=== PATIENT | female | born 1985 | race Hispanic/Latino ===

== ENCOUNTER 2016-08-18 15:15 | Emergency (ER) | payer SELFPAY ==
[~2016-08-18 15:15] MED LIST: AMOXICILLIN500 MG OR; CIPROFLOXACN500 MG PO; MACRODANTIN100 MG OR; PRENATA4 OR; PYRIDIUM200 MG PO
== END 2016-08-18 15:23 | disposition left against medical advice (07) | DRG 951 ==
LOC: ED 15:15 → LWOBS 15:23
DX: Z91.19 Patient's noncompliance with other medical treatment and regimen (principal)

== ENCOUNTER 2017-05-17 16:03 | Emergency (ER) | payer SELFPAY ==
[~2017-05-17] VITALS: Ht 162.6 cm; Wt 72.0 kg
[2017-05-17 16:28] LABS: URINE BILIRUBIN - DIPSTICK NEGATIVE (NEGATIVE); URINE BLOOD DIPSTICK LARGE (NEGATIVE); URINE COLOR YELLOW; URINE GLUCOSE - DIPSTICK >=1000 mg/dL (NEGATIVE); URINE KETONE NEGATIVE (NEGATIVE); URINE LEUK ESTERASE NEGATIVE (NEGATIVE); URINE NITRITE - DIPSTICK NEGATIVE (Negative); URINE PH 5.5 (4.5-8.0); URINE PROTEIN - DIPSTICK TRACE mg/dL (NEG-TRACE); URINE SPECIFIC GRAVITY 1.025
[2017-05-17 16:32] LABS: URINE CLARITY CLEAR
[2017-05-17 16:35] LABS: HCG SERUM/URINE (NEG/POS) POSITIVE (NEGATIVE)
[2017-05-17] MEDS ORDERED: PRENATAL MULTI1 CAP PO (16:49)
[2017-05-17] MEDS ORDERED: IBUPROFEN600 MG PO (16:50)
[2017-05-17] MEDS ORDERED: AFRIN 12 HOUR0.05 % (16:56)
[2017-05-17] MEDS ORDERED: ZOFRAN ODT4 MG PO (16:56)
[2017-05-17 16:58] LABS: INFLUENZA A NONE DETECTED (NONE DETECT); INFLUENZA B NONE DETECTED (NONE DETECT)
[2017-05-17 17:00] LABS: URINE RBC 25-50 RBC/hpf (0-5); URINE SQUAMOUS EPITHELIAL CELL FEW EPI/hpf (0-FEW)
[2017-05-17 17:05] VITALS: BP 151/78
== END 2017-05-17 17:05 | disposition home or self-care (01) | DRG 866 ==
LOC: ED 16:03
PROVIDERS: Emergency Medicine
DX: B34.9 Viral infection, unspecified (principal); M54.9 Dorsalgia, unspecified; M79.1 Myalgia; R09.81 Nasal congestion; Z33.1 Pregnant state, incidental; R07.89 Other chest pain; R11.0 Nausea

== ENCOUNTER 2019-01-09 20:31 | Emergency (ER) | payer OTHER ==
[~2019-01-09] VITALS: Ht 162.6 cm; Wt 76.6 kg
[~2019-01-09 20:31] MED LIST changes: +AFRIN 12 HOUR0.05 %; +IBUPROFEN600 MG PO; +PRENATAL MULTI1 CAP PO; +ZOFRAN ODT4 MG PO
[2019-01-09] MEDS ORDERED: AMOXICILLIN500 MG PO (20:43)
[2019-01-09] MEDS ORDERED: PREDNISONE10 MG PO (21:01)
[2019-01-09 21:20] VITALS: BP 141/89
== END 2019-01-09 21:20 | disposition home or self-care (01) ==
LOC: ED 20:31
DX: J02.9 Acute pharyngitis, unspecified (principal); R50.9 Fever, unspecified
CPT/HCPCS: J0561